=== PATIENT | female | born 1965 | race Hispanic/Latino ===

== ENCOUNTER 2017-05-05 10:16 | Inpatient (IN) | payer BC ==
[2017-05-05 13:05] LABS: Hematocrit 30.9 % (30.3-42.9); Hemoglobin 10.1 gm/dl (10.1-14.3); Mean Corpuscular HGB Conc 33 % (30-34); Mean Corpuscular Hemoglobin 30 pg (28-32); Mean Corpuscular Volume 91 fl (79-97); Red Blood Count 3.38 M/mm3 (3.65-5.03); Red Cell Distribution Width 16.4 % (13.2-15.2)
[2017-05-05 13:07] LABS: Platelet Count 49 K/mm3 (140-440)
[2017-05-05 13:08] LABS: White Blood Count 1.8 K/mm3 (4.5-11.0)
[2017-05-05 13:21] LABS: Albumin 2.6 g/dL (3.9-5); Albumin/Globulin Ratio 0.9 %; Bilirubin,Direct 0.9 mg/dL (0-0.2); Bilirubin,Total 1.9 mg/dL (0.1-1.2); Total Protein 5.5 g/dL (6.3-8.2)
[2017-05-05 13:39] LABS: Basophils % (Manual) 0 % (0.0-1.8); Blastocytes % (Manual) 0 %
[2017-05-05 13:40] LABS: Anisocytosis 1+; Diff Status Complete; Ovalocytes 1+; Platelet Estimate Appears Decreased; Poikilocytosis 1+
[2017-05-05] MEDS ORDERED: NACL 0.9% 1000 ML 1,000 ML IV ONE (13:40)
[2017-05-05 13:50] LABS: Anion Gap 13 mmol/L; Blood Urea Nitrogen 12 mg/dL (7-17); Calcium 7.9 mg/dL (8.4-10.2); Carbon Dioxide 24 mmol/L (22-30); Chloride 109.5 mmol/L (98-107); Glucose 98 mg/dL (65-100); Sodium 142 mmol/L (137-145)
[2017-05-05] MEDS ORDERED: CEPHULAC PO ONE (14:03)
--- NOTE | 2017-05-05 14:33 | Cat Scan Report ---
CT HEAD WITHOUT CONTRAST: HISTORY: Altered mental status. Serial contiguous axial images were obtained through the cranium. Intravenous contrast material was not administered. The ventricles are normal in size and appearance. There is no mass effect or midline shift. No areas of abnormally increased or decreased attenuation are seen. No mass lesion is seen. The mastoid air cells and visualized portions of the sinuses are normal. IMPRESSION: Cranial CT scan within normal limits.
[2017-05-05 15:36] LABS: INR 1.24 (0.87-1.13)
[2017-05-05 15:37] LABS: Partial Thromboplastin Time 28.1 Sec. (24.2-36.6)
[2017-05-05 15:40] LABS: Creatine Kinase MB 1.3 ng/mL (0.0-4.0)
[2017-05-05 15:52] LABS: Creatine Kinase MB 1.3 ng/mL (0.0-4.0)
[2017-05-05 15:53] LABS: Creatine Kinase 77 units/L (30-135)
[2017-05-05 15:55] LABS: Urine Drugs of Abuse Note Disclamer
[2017-05-05 16:22] LABS: Bilirubin,Urine NEG (Negative); Blood,Urine NEG (Negative); Ketones,Urine NEG (Negative); Leukocyte Esterase,Urine NEG (Negative); Nitrite,Urine NEG (Negative); Protein,Urine <15 mg/dL mg/dL (Negative)
--- NOTE | 2017-05-05 16:43 | Emergency Department Report ---
ED General Adult HPI - General Chief complaint: Weakness Stated complaint: AMS Time Seen by Provider: 05/05/17 11:38 Source: EMS Mode of arrival: Stretcher Limitations: Altered Mental Status - History of Present Illness Initial comments: I told that this patient has been a resident at [facility] for the past 4 days. I do not know if she is an inpatient or an outpatient at the [facility]. Information is unclear regarding this fact. She was sent here for altered mental status for evaluation. No other information was"at the time of my encounter. Later additional information was obtained from the family. The patient has a history of cirrhosis. She has previously been on lactulose. She has continued alcohol dependency. -: days(s) Severity scale (0 -10): 0 - Related Data Allergies Allergy/AdvReac Type Severity Reaction Status Date / Time trazodone Allergy Unknown Verified 05/05/17 11:30 ED Review of Systems ROS: Stated complaint: AMS Other details as noted in HPI Comment: Unobtainable due to pts medical conditions ED Past Medical Hx - Past Medical History Hx Liver Disease: Yes (end-stage liver disease) Additional medical history: etoh - Social History Smoking Status: Current Some Day Smoker Substance Use Type: Alcohol ED Physical Exam - General Limitations: Altered Mental Status General appearance: in no apparent distress, lethargic (but able to ambulate to the bathroom) - Head Head exam: Present: atraumatic, normocephalic - Eye Eye exam: Present: normal appearance, PERRL, EOMI. Absent: scleral icterus - ENT ENT exam: Present: mucous membranes moist - Neck Neck exam: Present: normal inspection. Absent: tenderness, meningismus - Respiratory Respiratory exam: Present: normal lung sounds bilaterally. Absent: respiratory distress - Cardiovascular Cardiovascular Exam: Present: regular rate, normal rhythm. Absent: systolic murmur, diastolic murmur, rubs, gallop - GI/Abdominal GI/Abdominal exam: Present: soft, normal bowel sounds. Absent: distended, tenderness, guarding, rebound, rigid - Extremities Exam Extremities exam: Present: normal inspection - Back Exam Back exam: Present: normal inspection - Neurological Exam Neurological exam: Present: altered, CN II-XII intact (as testable), normal gait. Absent: motor sensory deficit - Psychiatric Psychiatric exam: Present: normal mood, flat affect - Skin Skin exam: Present: warm, dry, intact, normal color. Absent: rash ED Course Vital Signs 05/05/17 05/05/17 11:03 15:39 Temperature 97.4 F L Pulse Rate 68 64 Respiratory 16 18 Rate Blood Pressure 95/50 Blood Pressure 124/64 [Left] O2 Sat by Pulse 100 97 Oximetry - Reevaluation(s) Reevaluation #1: The patient was found to have an ammonia level of greater than 250. Swallow screen was done. Lactulose was ordered. She is referred to the hospitalist service for further care and evaluation. She has a substantial pancytopenia. Lactic acid and blood cultures were ordered. Nurse informed to straight cath the patient for specimen. Urine culture ordered. 05/05/17 16:40 ED Medical Decision Making - Lab Data Result diagrams: 05/05/17 12:42 05/05/17 12:42 Laboratory Results - last 24 hr 05/05/17 05/05/17 05/05/17 12:42 12:42 12:42 WBC 1.8 L* RBC 3.38 L Hgb 10.1 Hct 30.9 MCV 91 MCH 30 MCHC 33 RDW 16.4 H Plt Count 49 L Add Manual Diff Complete Total Counted 25 Seg Neuts % (Manual) 44.0 Band Neutrophils % 0 Lymphocytes % (Manual) 48.0 H Reactive Lymphs % (Man) 0 Monocytes % (Manual) 4.0 Eosinophils % (Manual) 4.0 Basophils % (Manual) 0 Metamyelocytes % 0 Myelocytes % 0 Promyelocytes % 0 Blast Cells % 0 Nucleated RBC % Not Reportable Seg Neutrophils # Man 0.8 L Band Neutrophils # 0.0 Lymphocytes # (Manual) 0.9 L Abs React Lymphs (Man) 0.0 Monocytes # (Manual) 0.1 Eosinophils # (Manual) 0.1 Basophils # (Manual) 0.0 Metamyelocytes # 0.0 Myelocytes # 0.0 Promyelocytes # 0.0 Blast Cells # 0.0 WBC Morphology Not Reportable Hypersegmented Neuts Not Reportable Hyposegmented Neuts Not Reportable Hypogranular Neuts Not Reportable Smudge Cells Not Reportable Toxic Granulation Not Reportable Toxic Vacuolation Not Reportable Dohle Bodies Not Reportable Pelger-Huet Anomaly Not Reportable Nery Rods Not Reportable Platelet Estimate Appears decreased Clumped Platelets Not Reportable Plt Clumps, EDTA Not Reportable Large Platelets Not Reportable Giant Platelets Not Reportable Platelet Satelliting Not Reportable Plt Morphology Comment Not Reportable RBC Morphology Not Reportable Dimorphic RBCs Not Reportable Polychromasia Not Reportable Hypochromasia Not Reportable Poikilocytosis 1+ Anisocytosis 1+ Microcytosis Not Reportable Macrocytosis Not Reportable Spherocytes Not Reportable Pappenheimer Bodies Not Reportable Sickle Cells Not Reportable Target Cells Not Reportable Tear Drop Cells Not Reportable Ovalocytes 1+ Helmet Cells Not Reportable [place] Bodies Not Reportable [place] Rings Not Reportable Golden Cells Not Reportable Bite Cells Not Reportable Crenated Cell Not Reportable Elliptocytes Not Reportable Acanthocytes (Spur) Not Reportable Rouleaux Not Reportable Hemoglobin C Crystals Not Reportable Schistocytes Not Reportable Malaria parasites Not Reportable Joseph Bodies Not Reportable Hem Pathologist Commnt No PT INR APTT Sodium 142 Potassium 4.0 Chloride 109.5 H Carbon Dioxide 24 Anion Gap 13 BUN 12 Creatinine 0.4 L Estimated GFR > 60 BUN/Creatinine Ratio 30.00 Glucose 98 Lactic Acid Calcium 7.9 L Magnesium Total Bilirubin Direct Bilirubin Indirect Bilirubin AST ALT Alkaline Phosphatase Ammonia Total Creatine Kinase CK-MB (CK-2) CK-MB (CK-2) Rel Index Troponin T NT-Pro-B Natriuret Pep Total Protein Albumin Albumin/Globulin Ratio Urine Color Urine Turbidity Urine pH Ur Specific [place] [employer] Urine Protein Urine Glucose (UA) Urine Ketones Urine Blood Urine Nitrite Urine Bilirubin Urine Urobilinogen Ur Leukocyte Esterase Urine WBC (Auto) Urine RBC (Auto) Urine Opiates Screen Urine Methadone Screen Ur Barbiturates Screen Ur Phencyclidine Scrn Ur Amphetamines Screen Urine Cocaine Screen U Marijuana (THC) Screen Plasma/Serum Alcohol < 0.01 05/05/17 05/05/17 05/05/17 12:42 12:42 14:56 WBC RBC Hgb Hct MCV MCH MCHC RDW Plt Count Add Manual Diff Total Counted Seg Neuts % (Manual) Band Neutrophils % Lymphocytes % (Manual) Reactive Lymphs % (Man) Monocytes % (Manual) Eosinophils % (Manual) Basophils % (Manual) Metamyelocytes % Myelocytes % Promyelocytes % Blast Cells % Nucleated RBC % Seg Neutrophils # Man Band Neutrophils # Lymphocytes # (Manual) Abs React Lymphs (Man) Monocytes # (Manual) Eosinophils # (Manual) Basophils # (Manual) Metamyelocytes # Myelocytes # Promyelocytes # Blast Cells # WBC Morphology Hypersegmented Neuts Hyposegmented Neuts Hypogranular Neuts Smudge Cells Toxic Granulation Toxic Vacuolation Dohle Bodies Pelger-Huet Anomaly Nery Rods Platelet Estimate Clumped Platelets Plt Clumps, EDTA Large Platelets Giant Platelets Platelet Satelliting Plt Morphology Comment RBC Morphology Dimorphic RBCs Polychromasia Hypochromasia Poikilocytosis Anisocytosis Microcytosis Macrocytosis Spherocytes Pappenheimer Bodies Sickle Cells Target Cells Tear Drop Cells Ovalocytes Helmet Cells [place] Bodies [place] Rings Golden Cells Bite Cells Crenated Cell Elliptocytes Acanthocytes (Spur) Rouleaux Hemoglobin C Crystals Schistocytes Malaria parasites Joseph Bodies Hem Pathologist Commnt PT 16.3 H INR 1.24 H APTT 28.1 Sodium Potassium Chloride Carbon Dioxide Anion Gap BUN Creatinine Estimated GFR BUN/Creatinine Ratio Glucose Lactic Acid Calcium Magnesium Total Bilirubin 1.90 H Direct Bilirubin 0.9 H Indirect Bilirubin 1.0 AST 57 H ALT 18 Alkaline Phosphatase 141 H Ammonia 264.0 H Total Creatine Kinase CK-MB (CK-2) CK-MB (CK-2) Rel Index Troponin T NT-Pro-B Natriuret Pep Total Protein 5.5 L Albumin 2.6 L Albumin/Globulin Ratio 0.9 Urine Color Urine Turbidity Urine pH Ur Specific [place] [employer] Urine Protein Urine Glucose (UA) Urine Ketones Urine Blood Urine Nitrite Urine Bilirubin Urine Urobilinogen Ur Leukocyte Esterase Urine WBC (Auto) Urine RBC (Auto) Urine Opiates Screen Urine Methadone Screen Ur Barbiturates Screen Ur Phencyclidine Scrn Ur Amphetamines Screen Urine Cocaine Screen U Marijuana (THC) Screen Plasma/Serum Alcohol 05/05/17 05/05/17 05/05/17 14:56 14:56 14:56 WBC RBC Hgb Hct MCV MCH MCHC RDW Plt Count Add Manual Diff Total Counted Seg Neuts % (Manual) Band Neutrophils % Lymphocytes % (Manual) Reactive Lymphs % (Man) Monocytes % (Manual) Eosinophils % (Manual) Basophils % (Manual) Metamyelocytes % Myelocytes % Promyelocytes % Blast Cells % Nucleated RBC % Seg Neutrophils # Man Band Neutrophils # Lymphocytes # (Manual) Abs React Lymphs (Man) Monocytes # (Manual) Eosinophils # (Manual) Basophils # (Manual) Metamyelocytes # Myelocytes # Promyelocytes # Blast Cells # WBC Morphology Hypersegmented Neuts Hyposegmented Neuts Hypogranular Neuts Smudge Cells Toxic Granulation Toxic Vacuolation Dohle Bodies Pelger-Huet Anomaly Nery Rods Platelet Estimate Clumped Platelets Plt Clumps, EDTA Large Platelets Giant Platelets Platelet Satelliting Plt Morphology Comment RBC Morphology Dimorphic RBCs Polychromasia Hypochromasia Poikilocytosis Anisocytosis Microcytosis Macrocytosis Spherocytes Pappenheimer Bodies Sickle Cells Target Cells Tear Drop Cells Ovalocytes Helmet Cells [place] Bodies [place] Rings David Cells Bite Cells Crenated Cell Elliptocytes Acanthocytes (Spur) Rouleaux Hemoglobin C Crystals Schistocytes Malaria parasites Joseph Bodies Hem Pathologist Commnt PT INR APTT Sodium Potassium Chloride Carbon Dioxide Anion Gap BUN Creatinine Estimated GFR BUN/Creatinine Ratio Glucose Lactic Acid 1.60 Calcium Magnesium 2.20 Total Bilirubin Direct Bilirubin Indirect Bilirubin AST ALT Alkaline Phosphatase Ammonia Total Creatine Kinase 81 77 CK-MB (CK-2) 1.3 1.3 CK-MB (CK-2) Rel Index 1.6 1.6 Troponin T < 0.010 NT-Pro-B Natriuret Pep 28.78 Total Protein Albumin Albumin/Globulin Ratio Urine Color Urine Turbidity Urine pH Ur Specific [place] [employer] Urine Protein Urine Glucose (UA) Urine Ketones Urine Blood Urine Nitrite Urine Bilirubin Urine Urobilinogen Ur Leukocyte Esterase Urine WBC (Auto) Urine RBC (Auto) Urine Opiates Screen Urine Methadone Screen Ur Barbiturates Screen Ur Phencyclidine Scrn Ur Amphetamines Screen Urine Cocaine Screen U Marijuana (THC) Screen Plasma/Serum Alcohol 05/05/17 05/05/17 15:39 15:39 WBC RBC Hgb Hct MCV MCH MCHC RDW Plt Count Add Manual Diff Total Counted Seg Neuts % (Manual) Band Neutrophils % Lymphocytes % (Manual) Reactive Lymphs % (Man) Monocytes % (Manual) Eosinophils % (Manual) Basophils % (Manual) Metamyelocytes % Myelocytes % Promyelocytes % Blast Cells % Nucleated RBC % Seg Neutrophils # Man Band Neutrophils # Lymphocytes # (Manual) Abs React Lymphs (Man) Monocytes # (Manual) Eosinophils # (Manual) Basophils # (Manual) Metamyelocytes # Myelocytes # Promyelocytes # Blast Cells # WBC Morphology Hypersegmented Neuts Hyposegmented Neuts Hypogranular Neuts Smudge Cells Toxic Granulation Toxic Vacuolation Dohle Bodies Pelger-Huet Anomaly Nery Rods Platelet Estimate Clumped Platelets Plt Clumps, EDTA Large Platelets Giant Platelets Platelet Satelliting Plt Morphology Comment RBC Morphology Dimorphic RBCs Polychromasia Hypochromasia Poikilocytosis Anisocytosis Microcytosis Macrocytosis Spherocytes Pappenheimer Bodies Sickle Cells Target Cells Tear Drop Cells Ovalocytes Helmet Cells [place] Bodies [place] Rings Golden Cells Bite Cells Crenated Cell Elliptocytes Acanthocytes (Spur) Rouleaux Hemoglobin C Crystals Schistocytes Malaria parasites Joseph Bodies Hem Pathologist Commnt PT INR APTT Sodium Potassium Chloride Carbon Dioxide Anion Gap BUN Creatinine Estimated GFR BUN/Creatinine Ratio Glucose Lactic Acid Calcium Magnesium Total Bilirubin Direct Bilirubin Indirect Bilirubin AST ALT Alkaline Phosphatase Ammonia Total Creatine Kinase CK-MB (CK-2) CK-MB (CK-2) Rel Index Troponin T NT-Pro-B Natriuret Pep Total Protein Albumin Albumin/Globulin Ratio Urine Color Yellow Urine Turbidity Clear Urine pH 7.0 Ur Specific [place] [employer] 1.013 Urine Protein <15 mg/dl Urine Glucose (UA) Neg Urine Ketones Neg Urine Blood Neg Urine Nitrite Neg Urine Bilirubin Neg Urine Urobilinogen 4.0 Ur Leukocyte Esterase Neg Urine WBC (Auto) 1.0 Urine RBC (Auto) 4.0 Urine Opiates Screen Presumptive negative Urine Methadone Screen Presumptive negative Ur Barbiturates Screen Presumptive negative Ur Phencyclidine Scrn Presumptive negative Ur Amphetamines Screen Presumptive negative Urine Cocaine Screen Presumptive negative U Marijuana (THC) Screen Presumptive negative Plasma/Serum Alcohol - Medical Decision Making This time the patient's workup does not suggest infection. She does have a substantial pancytopenia mostly affecting the white cell And the platelets. There is no specific treatment for this at this time other than perhaps a banana bag. She will be admitted to the hospitalist service for further monitoring of this. Critical care attestation.: If time is entered above; I have spent that time in minutes in the direct care of this critically ill patient, excluding procedure time. ED Disposition Clinical Impression: Pancytopenia, Thrombocytopenia, End stage liver disease Neutropenia Qualifiers: Neutropenia type: unspecified Qualified Code(s): D70.9 - Neutropenia, unspecified Disposition: OP ADMIT IP TO THIS HOSP Is pt being admited?: Yes Does the pt Need Aspirin: No (contraindicated secondary to thrombocytopenia) Condition: Stable Referrals: PRIMARY CARE, [Primary Care Provider] - 3-5 Days Time of Disposition: 16:45
--- NOTE | 2017-05-05 16:50 | History and Physical Report ---
History of Present Illness Chief complaint: confused, lethargic History of present illness: 51 YO Female with ETOH Dependence, Cirrhosis, Nicotine Dependence, ESLD presents to ED for evaluation. Pt unable to provide history due to encephalopathy. Pt history provided by daughter who is at the bedside during exam and interview. Pt has been a resident at [facility] for the past 4 days fot ETOH Cessation. As per [facility] staff, the patient has become increasingly confused. EMS notified and patient transported to [facility] for evaluation. As per daughter, no reports of fever, chills, CP, Palpitations, Falls, Trauma, BRBPR, Hematemesis, productive cough, recent ill contacts. Pt seen and evaluated in ED and found to have a serum ammonia level of 264. Past History Past Medical History: other (ESLD, CIrrhosis, ETOH Dependence, ) Past Surgical History: appendectomy, cholecystectomy, Other (Gastric Bybass) Social history: single, lives with family, smoking, alcohol abuse Family history: CAD, diabetes Medications and Allergies Allergies Allergy/AdvReac Type Severity Reaction Status Date / Time trazodone Allergy Unknown Verified 05/05/17 11:30 Active Meds: Active Medications Sodium Chloride (Nacl 0.9% 1000 Ml) 1,000 mls @ 125 mls/hr IV ONCE ONE Stop: 05/05/17 21:39 Last Admin: 05/05/17 14:57 Dose: 125 mls/hr Folic Acid 1 mg/ Multivitamins /Minerals 10 ml/ Thiamine HCl 100 mg/ Sodium Chloride 1,000 mls @ 125 mls/hr IV .BY DURATION [facility] Sodium Chloride (Nacl 0.9% 1000 Ml) 1,000 mls @ 125 mls/hr IV .BY DURATION [facility] Review of Systems ROS unobtainable: due to mental status Exam - Constitutional Vitals: Temp Pulse Resp BP Pulse Ox 97.4 F L 64 18 124/64 97 05/05/17 11:03 05/05/17 15:39 05/05/17 15:39 05/05/17 15:39 05/05/17 15:39 General appearance: Present: mild distress - EENT Eyes: Present: PERRL ENT: hearing intact, clear oral mucosa - Neck Neck: Present: supple, normal ROM - Respiratory Respiratory effort: normal Respiratory: bilateral: CTA - Cardiovascular Heart Sounds: Present: S1 & S2. Absent: rub, click - Extremities Extremities: pulses symmetrical, No edema Peripheral Pulses: within normal limits - Abdominal General gastrointestinal: Present: soft, non-tender, non-distended, normal bowel sounds Female genitourinary: Present: normal - Integumentary Integumentary: Present: clear, dry, clammy, decreased turgor - Musculoskeletal Musculoskeletal: generalized weakness - Psychiatric Psychiatric: no intact judgment & insight, no memory intact - Neurologic Neurologic: no gait normal Results - Labs CBC & Chem 7: 05/05/17 12:42 05/05/17 12:42 Labs: Abnormal lab results 05/05/17 05/05/17 05/05/17 Range/Units 12:42 12:42 12:42 WBC 1.8 L* (4.5-11.0) K/mm3 RBC 3.38 L (3.65-5.03) M/mm3 RDW 16.4 H (13.2-15.2) % Plt Count 49 L (140-440) K/mm3 Lymphocytes % (Manual) 48.0 H (13.4-35.0) % Seg Neutrophils # Man 0.8 L (1.8-7.7) K/mm3 Lymphocytes # (Manual) 0.9 L (1.2-5.4) K/mm3 PT (12.2-14.9) Sec. INR (0.87-1.13) Chloride 109.5 H (98-107) mmol/L Creatinine 0.4 L (0.7-1.2) mg/dL Calcium 7.9 L (8.4-10.2) mg/dL Total Bilirubin 1.90 H (0.1-1.2) mg/dL Direct Bilirubin 0.9 H (0-0.2) mg/dL AST 57 H (5-40) units/L Alkaline Phosphatase 141 H (35-129) units/L Ammonia (25-60) umol/L Total Protein 5.5 L (6.3-8.2) g/dL Albumin 2.6 L (3.9-5) g/dL 05/05/17 05/05/17 Range/Units 12:42 14:56 WBC (4.5-11.0) K/mm3 RBC (3.65-5.03) M/mm3 RDW (13.2-15.2) % Plt Count (140-440) K/mm3 Lymphocytes % (Manual) (13.4-35.0) % Seg Neutrophils # Man (1.8-7.7) K/mm3 Lymphocytes # (Manual) (1.2-5.4) K/mm3 PT 16.3 H (12.2-14.9) Sec. INR 1.24 H (0.87-1.13) Chloride (98-107) mmol/L Creatinine (0.7-1.2) mg/dL Calcium (8.4-10.2) mg/dL Total Bilirubin (0.1-1.2) mg/dL Direct Bilirubin (0-0.2) mg/dL AST (5-40) units/L Alkaline Phosphatase (35-129) units/L Ammonia 264.0 H (25-60) umol/L Total Protein (6.3-8.2) g/dL Albumin (3.9-5) g/dL Assessment and Plan - Patient Problems (1) Hepatic encephalopathy syndrome Current Visit: Yes Status: Acute Plan to address problem: lactulose, IVF replacement, neuro checks, fall precautions, aspiration precautins, NPO (2) Cirrhosis Current Visit: Yes Status: Acute Qualifiers: Hepatic cirrhosis type: H Ascites presence: A Plan to address problem: Supportive care, ETOH cessation, hold tylenol. (3) End stage liver disease Current Visit: Yes Status: Acute Plan to address problem: supportive care, lactulose, hold hepatotoxic agents. (4) Thrombocytopenia Current Visit: Yes Status: Acute Plan to address problem: secondary to ESLD, supportive care, no active bleeding at this time. (5) DVT prophylaxis Current Visit: Yes Status: Acute
[2017-05-05] MEDS ORDERED: 1: FOLVITE 1 MG, INFUVITE 10 ML, VITAMIN B-1 100 MG in NACL 0.9% 1000 ML 988.8 ML 2: NA IV SCH (17:00)
[2017-05-05] MEDS ORDERED: PROVENTIL IH PRN (17:24)
[2017-05-05] MEDS ORDERED: ZOFRAN IV PRN (17:24)
[2017-05-05] MEDS ORDERED: MILK OF MAGNESIA PO PRN (17:24)
[2017-05-05] MEDS ORDERED: HALDOL IV PRN (17:27)
[2017-05-06] MEDS: ATIVAN IV PRN ×4 (05:53→15:57)
[2017-05-06] MEDS: NACL 0.9% 1000 ML 1,000 ML IV SCH (12:15)
--- NOTE | 2017-05-06 13:54 | Progress Note ---
Assessment and Plan Assessment and plan: Patient is a 51-year-old woman from [facility] with history of alcoholic end-stage liver disease/liver cirrhosis who presents with altered mental status. She was found to have ammonia level 264. UDS was positive for benzodiazepine. Also found to have pancytopenia all due to cirrhosis -Acute hepatic encephalopathy: Treat with lactulose -Advanced cirrhosis: Consult GI -Pancytopenia: Repeat CBC in a.m. -severe protein calorie malnutrition: Consult Dietitian -dvt prophylaxis: scd due to anemia History Interval history: Patient was seen and examined. Follow-up on current diagnosis/ams which is still present. Patient to confused to give history. She is awake alert Hospitalist Physical - Physical exam Narrative exam: GEN: unkempt, thin frail, NAD, AWAKE, ALERT, ORIENTATED 1 to self only HEENT: NCAT, EOMI, PERRL, OP Clear NECK: supple, no adenopathy, no thyromegaly, no JVD CVS/HEART: RRR, NORMAL S1S2, NO JVD, pulses present bilaterally CHEST/LUNGS: CTA B, Symmetrical chest expansion, good air entry bilaterally GI/Abdomen: soft, NTND, good bowel sounds, no guarding or rebound /Bladder: no suprapubic tenderness, no CVA or paraspinal tenderness EXT/Skin: no c/c/e, no significant edema or obvious rash MSK: FROM x 4 Neuro: CN 2-12 grossly intact, fine tremor Psych: calm - Constitutional Vitals: Temp Pulse Resp BP Pulse Ox 97.7 F 82 18 135/70 100 05/06/17 09:46 05/06/17 09:46 05/06/17 09:46 05/06/17 09:46 05/06/17 10:00 Results - Labs CBC & Chem 7: 05/05/17 12:42 05/05/17 12:42 Labs: Laboratory Last Values WBC 1.8 K/mm3 (4.5-11.0) L* 05/05/17 12:42 RBC 3.38 M/mm3 (3.65-5.03) L 05/05/17 12:42 Hgb 10.1 gm/dl (10.1-14.3) 05/05/17 12:42 Hct 30.9 % (30.3-42.9) 05/05/17 12:42 MCV 91 fl (79-97) 05/05/17 12:42 MCH 30 pg (28-32) 05/05/17 12:42 MCHC 33 % (30-34) 05/05/17 12:42 RDW 16.4 % (13.2-15.2) H 05/05/17 12:42 Plt Count 49 K/mm3 (140-440) L 05/05/17 12:42 Add Manual Diff Complete 05/05/17 12:42 Total Counted 25 05/05/17 12:42 Seg Neuts % (Manual) 44.0 % (40.0-70.0) 05/05/17 12:42 Band Neutrophils % 0 % 05/05/17 12:42 Lymphocytes % (Manual) 48.0 % (13.4-35.0) H 05/05/17 12:42 Reactive Lymphs % (Man) 0 % 05/05/17 12:42 Monocytes % (Manual) 4.0 % (0.0-7.3) 05/05/17 12:42 Eosinophils % (Manual) 4.0 % (0.0-4.3) 05/05/17 12:42 Basophils % (Manual) 0 % (0.0-1.8) 05/05/17 12:42 Metamyelocytes % 0 % 05/05/17 12:42 Myelocytes % 0 % 05/05/17 12:42 Promyelocytes % 0 % 05/05/17 12:42 Blast Cells % 0 % 05/05/17 12:42 Nucleated RBC % Not Reportable 05/05/17 12:42 Seg Neutrophils # Man 0.8 K/mm3 (1.8-7.7) L 05/05/17 12:42 Band Neutrophils # 0.0 K/mm3 05/05/17 12:42 Lymphocytes # (Manual) 0.9 K/mm3 (1.2-5.4) L 05/05/17 12:42 Abs React Lymphs (Man) 0.0 K/mm3 05/05/17 12:42 Monocytes # (Manual) 0.1 K/mm3 (0.0-0.8) 05/05/17 12:42 Eosinophils # (Manual) 0.1 K/mm3 (0.0-0.4) 05/05/17 12:42 Basophils # (Manual) 0.0 K/mm3 (0.0-0.1) 05/05/17 12:42 Metamyelocytes # 0.0 K/mm3 05/05/17 12:42 Myelocytes # 0.0 K/mm3 05/05/17 12:42 Promyelocytes # 0.0 K/mm3 05/05/17 12:42 Blast Cells # 0.0 K/mm3 05/05/17 12:42 WBC Morphology Not Reportable 05/05/17 12:42 Hypersegmented Neuts Not Reportable 05/05/17 12:42 Hyposegmented Neuts Not Reportable 05/05/17 12:42 Hypogranular Neuts Not Reportable 05/05/17 12:42 Smudge Cells Not Reportable 05/05/17 12:42 Toxic Granulation Not Reportable 05/05/17 12:42 Toxic Vacuolation Not Reportable 05/05/17 12:42 Dohle Bodies Not Reportable 05/05/17 12:42 Pelger-Huet Anomaly Not Reportable 05/05/17 12:42 Nery Rods Not Reportable 05/05/17 12:42 Platelet Estimate Appears decreased 05/05/17 12:42 Clumped Platelets Not Reportable 05/05/17 12:42 Plt Clumps, EDTA Not Reportable 05/05/17 12:42 Large Platelets Not Reportable 05/05/17 12:42 Giant Platelets Not Reportable 05/05/17 12:42 Platelet Satelliting Not Reportable 05/05/17 12:42 Plt Morphology Comment Not Reportable 05/05/17 12:42 RBC Morphology Not Reportable 05/05/17 12:42 Dimorphic RBCs Not Reportable 05/05/17 12:42 Polychromasia Not Reportable 05/05/17 12:42 Hypochromasia Not Reportable 05/05/17 12:42 Poikilocytosis 1+ 05/05/17 12:42 Anisocytosis 1+ 05/05/17 12:42 Microcytosis Not Reportable 05/05/17 12:42 Macrocytosis Not Reportable 05/05/17 12:42 Spherocytes Not Reportable 05/05/17 12:42 Pappenheimer Bodies Not Reportable 05/05/17 12:42 Sickle Cells Not Reportable 05/05/17 12:42 Target Cells Not Reportable 05/05/17 12:42 Tear Drop Cells Not Reportable 05/05/17 12:42 Ovalocytes 1+ 05/05/17 12:42 Helmet Cells Not Reportable 05/05/17 12:42 Ingram-[place] Bodies Not Reportable 05/05/17 12:42 [place] Rings Not Reportable 05/05/17 12:42 [place] Cells Not Reportable 05/05/17 12:42 Bite Cells Not Reportable 05/05/17 12:42 Crenated Cell Not Reportable 05/05/17 12:42 Elliptocytes Not Reportable 05/05/17 12:42 Acanthocytes (Spur) Not Reportable 05/05/17 12:42 Rouleaux Not Reportable 05/05/17 12:42 Hemoglobin C Crystals Not Reportable 05/05/17 12:42 Schistocytes Not Reportable 05/05/17 12:42 Malaria parasites Not Reportable 05/05/17 12:42 Joseph Bodies Not Reportable 05/05/17 12:42 Hem Pathologist Commnt No 05/05/17 12:42 PT 16.3 Sec. (12.2-14.9) H 05/05/17 14:56 INR 1.24 (0.87-1.13) H 05/05/17 14:56 APTT 28.1 Sec. (24.2-36.6) 05/05/17 14:56 Sodium 142 mmol/L (137-145) 05/05/17 12:42 Potassium 4.0 mmol/L (3.6-5.0) 05/05/17 12:42 Chloride 109.5 mmol/L (98-107) H 05/05/17 12:42 Carbon Dioxide 24 mmol/L (22-30) 05/05/17 12:42 Anion Gap 13 mmol/L 05/05/17 12:42 BUN 12 mg/dL (7-17) 05/05/17 12:42 Creatinine 0.4 mg/dL (0.7-1.2) L 05/05/17 12:42 Estimated GFR > 60 ml/min 05/05/17 12:42 BUN/Creatinine Ratio 30.00 % 05/05/17 12:42 Glucose 98 mg/dL (65-100) 05/05/17 12:42 Lactic Acid 1.60 mmol/L (0.7-2.0) 05/05/17 14:56 Calcium 7.9 mg/dL (8.4-10.2) L 05/05/17 12:42 Magnesium 2.20 mg/dL (1.7-2.3) 05/05/17 14:56 Total Bilirubin 1.90 mg/dL (0.1-1.2) H 05/05/17 12:42 Direct Bilirubin 0.9 mg/dL (0-0.2) H 05/05/17 12:42 Indirect Bilirubin 1.0 mg/dL 05/05/17 12:42 AST 57 units/L (5-40) H 05/05/17 12:42 ALT 18 units/L (7-56) 05/05/17 12:42 Alkaline Phosphatase 141 units/L (35-129) H 05/05/17 12:42 Ammonia 264.0 umol/L (25-60) H 05/05/17 12:42 Total Creatine Kinase 77 units/L (30-135) 05/05/17 14:56 CK-MB (CK-2) 1.3 ng/mL (0.0-4.0) 05/05/17 14:56 CK-MB (CK-2) Rel Index 1.6 (0-4) 05/05/17 14:56 Troponin T < 0.010 ng/mL (0.00-0.029) 05/05/17 14:56 NT-Pro-B Natriuret Pep 28.78 pg/mL (0-900) 05/05/17 14:56 Total Protein 5.5 g/dL (6.3-8.2) L 05/05/17 12:42 Albumin 2.6 g/dL (3.9-5) L 05/05/17 12:42 Albumin/Globulin Ratio 0.9 % 05/05/17 12:42 Urine Color Yellow (Yellow) 05/05/17 15:39 Urine Turbidity Clear (Clear) 05/05/17 15:39 Urine pH 7.0 (5.0-7.0) 05/05/17 15:39 Ur Specific [place] 1.013 (1.003-1.030) 05/05/17 15:39 Urine Protein <15 mg/dl mg/dL (Negative) 05/05/17 15:39 Urine Glucose (UA) Neg mg/dL (Negative) 05/05/17 15:39 Urine Ketones Neg mg/dL (Negative) 05/05/17 15:39 Urine Blood Neg (Negative) 05/05/17 15:39 Urine Nitrite Neg (Negative) 05/05/17 15:39 Urine Bilirubin Neg (Negative) 05/05/17 15:39 Urine Urobilinogen 4.0 mg/dL (<2.0) 05/05/17 15:39 Ur Leukocyte Esterase Neg (Negative) 05/05/17 15:39 Urine WBC (Auto) 1.0 /HPF (0.0-6.0) 05/05/17 15:39 Urine RBC (Auto) 4.0 /HPF (0.0-6.0) 05/05/17 15:39 Urine Opiates Screen Presumptive negative 05/05/17 15:39 Urine Methadone Screen Presumptive negative 05/05/17 15:39 Ur Barbiturates Screen Presumptive negative 05/05/17 15:39 Ur Phencyclidine Scrn Presumptive negative 05/05/17 15:39 Ur Amphetamines Screen Presumptive negative 05/05/17 15:39 U Benzodiazepines Scrn Presumptive positive 05/05/17 15:39 Urine Cocaine Screen Presumptive negative 05/05/17 15:39 U Marijuana (THC) Screen Presumptive negative 05/05/17 15:39 Drugs of Abuse Note Disclamer 05/05/17 15:39 Plasma/Serum Alcohol < 0.01 gm% (0-0.07) 05/05/17 12:42
[2017-05-06] MEDS: CEPHULAC PO SCH ×2 (15:56→18:45)
--- NOTE | 2017-05-06 16:30 | Gastroenterology Consultation ---
History of Present Illness - Reason for Consult Consult date: 05/06/17 hepatic encephalopathy Requesting physician: DUSTY MATHIS - History of Present Illness The patient is a 51 year old female transferred her from the [facility] where she had been for 4 days for alcohol dependence. She developed severe confusion and somnolence was sent to the ER where a very elevated ammonia level was found c/w hepatic encephalopathy. She apparently has a long history of ETOH abuse. The patient was unable to give any history due to her somnolence and confusion. Past History Past Medical History: other (ESLD, CIrrhosis, ETOH Dependence, ) Past Surgical History: appendectomy, cholecystectomy, Other (Gastric Bybass) Social history: single, lives with family, smoking, alcohol abuse Family history: CAD, diabetes Medications and Allergies Allergies Allergy/AdvReac Type Severity Reaction Status Date / Time trazodone Allergy Unknown Verified 05/05/17 11:30 Home Medications Medication Instructions Recorded Confirmed Last Taken Type FLUoxetine [PROzac] 60 mg PO DAILY 05/06/17 05/06/17 Unknown History Folic Acid [Folvite] 1 mg PO DAILY 05/06/17 05/06/17 Unknown History Magnesium Oxide [Magnesium] 400 mg PO DAILY 05/06/17 05/06/17 Unknown History Quetiapine Fumarate [SEROquel] 50 mg PO HS 05/06/17 05/06/17 Unknown History Rifaximin [Xifaxan] 550 mg PO BID 05/06/17 05/06/17 Unknown History Active Meds: Active Medications Albuterol (Proventil) 2.5 mg IH Q4HRT PRN PRN Reason: Shortness Of Breath Haloperidol Lactate (Haldol) 5 mg IV Q1HR PRN PRN Reason: Unrespon. to mult. doses BZD's Sodium Chloride (Nacl 0.9% 1000 Ml) 1,000 mls @ 125 mls/hr IV DIRECT WALT Last Admin: 05/06/17 12:15 Dose: 125 mls/hr Folic Acid 1 mg/ Multivitamins /Minerals 10 ml/ Thiamine HCl 100 mg/ Sodium Chloride 1,011.2 mls @ 125 mls/hr IV DAILY WALT Lactulose (Cephulac) 20 gm PO Q6HR WALT Last Admin: 05/06/17 15:56 Dose: 20 gm Lorazepam (Ativan) 2 mg IV Q1HR PRN PRN Reason: CIWA-Ar 8-15 Last Admin: 05/06/17 15:57 Dose: 2 mg Review of Systems - Review of Systems ROS unobtainable: due to mental status Exam - Constitutional Vital Signs: Temp Pulse Resp BP Pulse Ox 97.7 F 82 18 135/70 100 05/06/17 09:46 05/06/17 09:46 05/06/17 09:46 05/06/17 09:46 05/06/17 10:00 General appearance: no acute distress, well-nourished - EENT Eyes: PERRL ENT: hearing intact, clear oral mucosa, dentition normal - Neck Neck: supple, normal ROM, no masses or JVD - Respiratory Respiratory effort: normal Respiratory: bilateral: CTA - Breasts Breasts: deferred Extremities: pulses intact, No edema, normal color, Full ROM - Gastrointestinal General gastrointestinal: Present: soft, non-tender, non-distended, normal bowel sounds. Absent: hepatomegaly, splenomegaly, mass Rectal Exam: deferred - Genitourinary Female Genitourinary: deferred - Neurologic Neurological: disoriented, strength equal bilaterally, other (Somnolent. Mild asterixis. Follows simple commands and moves all extremities equally.) - Labs CBC & Chem 7: 05/05/17 12:42 05/05/17 12:42 Lab Results: Laboratory Results - last 24 hr 05/05/17 15:39 U Benzodiazepines Scrn Presumptive positive Drugs of Abuse Note Disclamer Assessment and Plan - Patient Problems (1) Cirrhosis Current Visit: Yes Status: Acute Qualifiers: Hepatic cirrhosis type: H Ascites presence: A Plan to address problem: Advanced liver disease secondary to ETOH. (2) End stage liver disease Current Visit: Yes Status: Acute (3) Hepatic encephalopathy syndrome Current Visit: Yes Status: Acute Plan to address problem: PSE may have been triggered by use of benzodiazepines, which should be avoided along with narcotics, any sedative/anti emetics etc in this setting. No signs of bleeding. She is on appropriate therapy and is taking lactulose PO. (4) Neutropenia Current Visit: Yes Status: Acute Qualifiers: Neutropenia type: unspecified Qualified Code(s): D70.9 - Neutropenia, unspecified
[2017-05-07] MEDS: CEPHULAC PO SCH ×4 (00:02→17:08)
[2017-05-07] MEDS: NACL 0.9% 1000 ML 1,000 ML IV SCH (00:03)
[2017-05-07] MEDS ORDERED: ATIVAN PO PRN ×2 (03:51→03:54)
[2017-05-07] MEDS ORDERED: VITAMIN B1 IV SCH (10:00)
[2017-05-07] MEDS ORDERED: NACL 0.9% IV SCH (10:00)
[2017-05-07] MEDS ORDERED: FOLVITE IV SCH (10:00)
[2017-05-07] MEDS ORDERED: INFUVITE IV SCH (10:00)
--- NOTE | 2017-05-07 12:55 | Progress Note ---
Assessment and Plan Assessment and plan: Patient is a 51-year-old woman from [facility] with history of alcoholic end-stage liver disease/liver cirrhosis who presents with altered mental status. She was found to have ammonia level 264. UDS was positive for benzodiazepine. Also found to have pancytopenia all due to cirrhosis -Acute hepatic encephalopathy: Treat with lactulose -Advanced cirrhosis: Consulted GI -Pancytopenia: Repeat CBC in a.m. -severe protein calorie malnutrition: Consult Dietitian -dvt prophylaxis: scd due to anemia History Interval history: Patient was seen and examined. Follow-up on current diagnosis/ams which is still present. Patient to confused to give history. She is awake alert Hospitalist Physical - Physical exam Narrative exam: GEN: unkempt, thin frail, NAD, AWAKE, ALERT, ORIENTATED 1, self but almost got the year correct HEENT: NCAT, EOMI, PERRL, OP Clear NECK: supple, no adenopathy, no thyromegaly, no JVD CVS/HEART: RRR, NORMAL S1S2, NO JVD, pulses present bilaterally CHEST/LUNGS: CTA B, Symmetrical chest expansion, good air entry bilaterally GI/Abdomen: soft, NTND, good bowel sounds, no guarding or rebound /Bladder: no suprapubic tenderness, no CVA or paraspinal tenderness EXT/Skin: no c/c/e, no significant edema or obvious rash MSK: FROM x 4 Neuro: CN 2-12 grossly intact, fine tremor Psych: calm - Constitutional Vitals: Temp Pulse Resp BP Pulse Ox 99.3 F 78 18 129/77 96 05/07/17 11:37 05/07/17 11:37 05/07/17 11:37 05/07/17 11:37 05/07/17 11:37 General appearance: Present: mild distress Results - Labs CBC & Chem 7: 05/05/17 12:42 05/05/17 12:42 Labs: Laboratory Last Values WBC 1.8 K/mm3 (4.5-11.0) L* 05/05/17 12:42 RBC 3.38 M/mm3 (3.65-5.03) L 05/05/17 12:42 Hgb 10.1 gm/dl (10.1-14.3) 05/05/17 12:42 Hct 30.9 % (30.3-42.9) 05/05/17 12:42 MCV 91 fl (79-97) 05/05/17 12:42 MCH 30 pg (28-32) 05/05/17 12:42 MCHC 33 % (30-34) 05/05/17 12:42 RDW 16.4 % (13.2-15.2) H 05/05/17 12:42 Plt Count 49 K/mm3 (140-440) L 05/05/17 12:42 Add Manual Diff Complete 05/05/17 12:42 Total Counted 25 05/05/17 12:42 Seg Neuts % (Manual) 44.0 % (40.0-70.0) 05/05/17 12:42 Band Neutrophils % 0 % 05/05/17 12:42 Lymphocytes % (Manual) 48.0 % (13.4-35.0) H 05/05/17 12:42 Reactive Lymphs % (Man) 0 % 05/05/17 12:42 Monocytes % (Manual) 4.0 % (0.0-7.3) 05/05/17 12:42 Eosinophils % (Manual) 4.0 % (0.0-4.3) 05/05/17 12:42 Basophils % (Manual) 0 % (0.0-1.8) 05/05/17 12:42 Metamyelocytes % 0 % 05/05/17 12:42 Myelocytes % 0 % 05/05/17 12:42 Promyelocytes % 0 % 05/05/17 12:42 Blast Cells % 0 % 05/05/17 12:42 Nucleated RBC % Not Reportable 05/05/17 12:42 Seg Neutrophils # Man 0.8 K/mm3 (1.8-7.7) L 05/05/17 12:42 Band Neutrophils # 0.0 K/mm3 05/05/17 12:42 Lymphocytes # (Manual) 0.9 K/mm3 (1.2-5.4) L 05/05/17 12:42 Abs React Lymphs (Man) 0.0 K/mm3 05/05/17 12:42 Monocytes # (Manual) 0.1 K/mm3 (0.0-0.8) 05/05/17 12:42 Eosinophils # (Manual) 0.1 K/mm3 (0.0-0.4) 05/05/17 12:42 Basophils # (Manual) 0.0 K/mm3 (0.0-0.1) 05/05/17 12:42 Metamyelocytes # 0.0 K/mm3 05/05/17 12:42 Myelocytes # 0.0 K/mm3 05/05/17 12:42 Promyelocytes # 0.0 K/mm3 05/05/17 12:42 Blast Cells # 0.0 K/mm3 05/05/17 12:42 WBC Morphology Not Reportable 05/05/17 12:42 Hypersegmented Neuts Not Reportable 05/05/17 12:42 Hyposegmented Neuts Not Reportable 05/05/17 12:42 Hypogranular Neuts Not Reportable 05/05/17 12:42 Smudge Cells Not Reportable 05/05/17 12:42 Toxic Granulation Not Reportable 05/05/17 12:42 Toxic Vacuolation Not Reportable 05/05/17 12:42 Dohle Bodies Not Reportable 05/05/17 12:42 Pelger-Huet Anomaly Not Reportable 05/05/17 12:42 Nery Rods Not Reportable 05/05/17 12:42 Platelet Estimate Appears decreased 05/05/17 12:42 Clumped Platelets Not Reportable 05/05/17 12:42 Plt Clumps, EDTA Not Reportable 05/05/17 12:42 Large Platelets Not Reportable 05/05/17 12:42 Giant Platelets Not Reportable 05/05/17 12:42 Platelet Satelliting Not Reportable 05/05/17 12:42 Plt Morphology Comment Not Reportable 05/05/17 12:42 RBC Morphology Not Reportable 05/05/17 12:42 Dimorphic RBCs Not Reportable 05/05/17 12:42 Polychromasia Not Reportable 05/05/17 12:42 Hypochromasia Not Reportable 05/05/17 12:42 Poikilocytosis 1+ 05/05/17 12:42 Anisocytosis 1+ 05/05/17 12:42 Microcytosis Not Reportable 05/05/17 12:42 Macrocytosis Not Reportable 05/05/17 12:42 Spherocytes Not Reportable 05/05/17 12:42 Pappenheimer Bodies Not Reportable 05/05/17 12:42 Sickle Cells Not Reportable 05/05/17 12:42 Target Cells Not Reportable 05/05/17 12:42 Tear Drop Cells Not Reportable 05/05/17 12:42 Ovalocytes 1+ 05/05/17 12:42 Helmet Cells Not Reportable 05/05/17 12:42 Ingram-[place] Bodies Not Reportable 05/05/17 12:42 [place] Rings Not Reportable 05/05/17 12:42 [place] Cells Not Reportable 05/05/17 12:42 Bite Cells Not Reportable 05/05/17 12:42 Crenated Cell Not Reportable 05/05/17 12:42 Elliptocytes Not Reportable 05/05/17 12:42 Acanthocytes (Spur) Not Reportable 05/05/17 12:42 Rouleaux Not Reportable 05/05/17 12:42 Hemoglobin C Crystals Not Reportable 05/05/17 12:42 Schistocytes Not Reportable 05/05/17 12:42 Malaria parasites Not Reportable 05/05/17 12:42 Joseph Bodies Not Reportable 05/05/17 12:42 Hem Pathologist Commnt No 05/05/17 12:42 PT 16.3 Sec. (12.2-14.9) H 05/05/17 14:56 INR 1.24 (0.87-1.13) H 05/05/17 14:56 APTT 28.1 Sec. (24.2-36.6) 05/05/17 14:56 Sodium 142 mmol/L (137-145) 05/05/17 12:42 Potassium 4.0 mmol/L (3.6-5.0) 05/05/17 12:42 Chloride 109.5 mmol/L (98-107) H 05/05/17 12:42 Carbon Dioxide 24 mmol/L (22-30) 05/05/17 12:42 Anion Gap 13 mmol/L 05/05/17 12:42 BUN 12 mg/dL (7-17) 05/05/17 12:42 Creatinine 0.4 mg/dL (0.7-1.2) L 05/05/17 12:42 Estimated GFR > 60 ml/min 05/05/17 12:42 BUN/Creatinine Ratio 30.00 % 05/05/17 12:42 Glucose 98 mg/dL (65-100) 05/05/17 12:42 Lactic Acid 1.60 mmol/L (0.7-2.0) 05/05/17 14:56 Calcium 7.9 mg/dL (8.4-10.2) L 05/05/17 12:42 Magnesium 2.20 mg/dL (1.7-2.3) 05/05/17 14:56 Total Bilirubin 1.90 mg/dL (0.1-1.2) H 05/05/17 12:42 Direct Bilirubin 0.9 mg/dL (0-0.2) H 05/05/17 12:42 Indirect Bilirubin 1.0 mg/dL 05/05/17 12:42 AST 57 units/L (5-40) H 05/05/17 12:42 ALT 18 units/L (7-56) 05/05/17 12:42 Alkaline Phosphatase 141 units/L (35-129) H 05/05/17 12:42 Ammonia 264.0 umol/L (25-60) H 05/05/17 12:42 Total Creatine Kinase 77 units/L (30-135) 05/05/17 14:56 CK-MB (CK-2) 1.3 ng/mL (0.0-4.0) 05/05/17 14:56 CK-MB (CK-2) Rel Index 1.6 (0-4) 05/05/17 14:56 Troponin T < 0.010 ng/mL (0.00-0.029) 05/05/17 14:56 NT-Pro-B Natriuret Pep 28.78 pg/mL (0-900) 05/05/17 14:56 Total Protein 5.5 g/dL (6.3-8.2) L 05/05/17 12:42 Albumin 2.6 g/dL (3.9-5) L 05/05/17 12:42 Albumin/Globulin Ratio 0.9 % 05/05/17 12:42 Urine Color Yellow (Yellow) 05/05/17 15:39 Urine Turbidity Clear (Clear) 05/05/17 15:39 Urine pH 7.0 (5.0-7.0) 05/05/17 15:39 Ur Specific [place] 1.013 (1.003-1.030) 05/05/17 15:39 Urine Protein <15 mg/dl mg/dL (Negative) 05/05/17 15:39 Urine Glucose (UA) Neg mg/dL (Negative) 05/05/17 15:39 Urine Ketones Neg mg/dL (Negative) 05/05/17 15:39 Urine Blood Neg (Negative) 05/05/17 15:39 Urine Nitrite Neg (Negative) 05/05/17 15:39 Urine Bilirubin Neg (Negative) 05/05/17 15:39 Urine Urobilinogen 4.0 mg/dL (<2.0) 05/05/17 15:39 Ur Leukocyte Esterase Neg (Negative) 05/05/17 15:39 Urine WBC (Auto) 1.0 /HPF (0.0-6.0) 05/05/17 15:39 Urine RBC (Auto) 4.0 /HPF (0.0-6.0) 05/05/17 15:39 Urine Opiates Screen Presumptive negative 05/05/17 15:39 Urine Methadone Screen Presumptive negative 05/05/17 15:39 Ur Barbiturates Screen Presumptive negative 05/05/17 15:39 Ur Phencyclidine Scrn Presumptive negative 05/05/17 15:39 Ur Amphetamines Screen Presumptive negative 05/05/17 15:39 U Benzodiazepines Scrn Presumptive positive 05/05/17 15:39 Urine Cocaine Screen Presumptive negative 05/05/17 15:39 U Marijuana (THC) Screen Presumptive negative 05/05/17 15:39 Drugs of Abuse Note Disclamer 05/05/17 15:39 Plasma/Serum Alcohol < 0.01 gm% (0-0.07) 05/05/17 12:42
--- NOTE | 2017-05-07 15:47 | Gastroenterology Progress Note ---
Assessment and Plan - Patient Problems (1) Cirrhosis Current Visit: Yes Status: Acute Qualifiers: Hepatic cirrhosis type: H Ascites presence: A (2) End stage liver disease Current Visit: Yes Status: Acute (3) Hepatic encephalopathy syndrome Current Visit: Yes Status: Acute Plan to address problem: Improving rapidly. Stable GI parmar. All sedatives, hypnotics, anti emetics, narcotics, and benzodiazepines should be avoided. Would limit the use of antipsychotic as much as feasible as well. OK to consider discharge in AM GI parmar. (4) Neutropenia Current Visit: Yes Status: Acute Qualifiers: Neutropenia type: unspecified Qualified Code(s): D70.9 - Neutropenia, unspecified Subjective Date of service: 05/07/17 Principal diagnosis: hepatic encephalopathy Interval history: The patient reports feeling a lot better. She desires to go home soon because her daughter is getting in 2 days by her report. Objective - Constitutional Vitals: Temp Pulse Resp BP Pulse Ox 99.3 F 78 18 129/77 96 05/07/17 11:37 05/07/17 11:37 05/07/17 11:37 05/07/17 11:37 05/07/17 11:37 General appearance: no acute distress, other (fully alert and oriented) - EENT ENT: hearing intact, clear oral mucosa, dentition normal - Neck Neck: supple, normal ROM - Respiratory Respiratory effort: normal Respiratory: bilateral: CTA - Cardiovascular Rhythm: regular - Gastrointestinal General gastrointestinal: Present: soft, non-tender, non-distended, normal bowel sounds - Neurologic Neurological: alert and oriented x3, strength equal bilaterally, other (No asterixis) - Psychiatric Psychiatric: appropriate mood/affect, intact judgment & insight - Labs CBC & Chem 7: 05/05/17 12:42 05/05/17 12:42
[2017-05-07] MEDS ORDERED: NON-FORMULARY (Quetiapine Fumarate [Seroquel] 50 MG) PO SCH (22:00)
[2017-05-07] MEDS: XIFAXAN PO SCH (22:08)
[2017-05-08] MEDS: CEPHULAC PO SCH ×3 (01:10→13:13)
[2017-05-08] MEDS: NACL 0.9% 1000 ML 1,000 ML IV SCH ×2 (01:13→08:39)
[2017-05-08 06:09] LABS: Hematocrit 28.5 % (30.3-42.9); Hemoglobin 9.6 gm/dl (10.1-14.3); Mean Corpuscular HGB Conc 34 % (30-34); Mean Corpuscular Hemoglobin 31 pg (28-32); Mean Corpuscular Volume 91 fl (79-97); Red Blood Count 3.14 M/mm3 (3.65-5.03); Red Cell Distribution Width 16.9 % (13.2-15.2); White Blood Count 2.4 K/mm3 (4.5-11.0)
[2017-05-08 06:18] LABS: Platelet Count 51 K/mm3 (140-440)
[2017-05-08 06:35] LABS: Alanine Aminotransferase 22 units/L (7-56); Albumin 2.5 g/dL (3.9-5); Albumin/Globulin Ratio 0.9 %; Alkaline Phosphatase 136 units/L (35-129); Anion Gap 14 mmol/L; BUN/Creatinine Ratio 13.33; Blood Urea Nitrogen 4 mg/dL (7-17); Calcium 7.7 mg/dL (8.4-10.2); Carbon Dioxide 23 mmol/L (22-30); Chloride 112.6 mmol/L (98-107); Glucose 82 mg/dL (65-100); Potassium 3.4 mmol/L (3.6-5.0); Sodium 146 mmol/L (137-145); Total Protein 5.2 g/dL (6.3-8.2)
[2017-05-08 08:17] VITALS: BP 106/66
[2017-05-08] MEDS: XIFAXAN PO SCH (09:43)
[2017-05-08] MEDS ORDERED: MAG-OX PO SCH (10:00)
--- NOTE | 2017-05-08 11:34 | Progress Note ---
Assessment and Plan Assessment and plan: Patient is a 51-year-old woman from [facility] with history of alcoholic end-stage liver disease/liver cirrhosis who presents with altered mental status. She was found to have ammonia level 264. UDS was positive for benzodiazepine. Also found to have pancytopenia all due to cirrhosis -Alcholol withdrawal suspected but resolving: [facility] protocol -Acute hepatic encephalopathy with hyperammonemia: Treated with lactulose -Advanced cirrhosis: Consulted GI -Pancytopenia with coagulopathy due to cirrhosis -severe protein calorie malnutrition: Consult Dietitian -dvt prophylaxis: scd due to anemia -Hypokalemia: replace full code disposition: continue inpatient care. d/c restraints. History Interval history: Patient was seen and examined. Follow-up on current diagnosis/ams resolving. No cp.sob, headaches Hospitalist Physical - Physical exam Narrative exam: GEN: unkempt, thin frail, NAD, awake alert ORIENTATED 2, missed place HEENT: NCAT, EOMI, PERRL, OP Clear NECK: supple, no adenopathy, no thyromegaly, no JVD CVS/HEART: RRR, NORMAL S1S2, NO JVD, pulses present bilaterally CHEST/LUNGS: CTA B, Symmetrical chest expansion, good air entry bilaterally GI/Abdomen: soft, NTND, good bowel sounds, no guarding or rebound /Bladder: no suprapubic tenderness, no CVA or paraspinal tenderness EXT/Skin: no c/c/e, no significant edema or obvious rash MSK: FROM x 4 Neuro: CN 2-12 grossly intact, fine tremor Psych: calm - Constitutional Vitals: Temp Pulse Resp BP Pulse Ox 98.6 F 68 20 106/66 97 05/08/17 08:02 05/08/17 08:02 05/08/17 08:02 05/08/17 08:02 05/08/17 08:02 General appearance: Absent: mild distress, severe distress Results - Labs CBC & Chem 7: 05/08/17 05:38 05/08/17 05:38 Labs: Laboratory Last Values WBC 2.4 K/mm3 (4.5-11.0) L 05/08/17 05:38 RBC 3.14 M/mm3 (3.65-5.03) L 05/08/17 05:38 Hgb 9.6 gm/dl (10.1-14.3) L 05/08/17 05:38 Hct 28.5 % (30.3-42.9) L 05/08/17 05:38 MCV 91 fl (79-97) 05/08/17 05:38 MCH 31 pg (28-32) 05/08/17 05:38 MCHC 34 % (30-34) 05/08/17 05:38 RDW 16.9 % (13.2-15.2) H 05/08/17 05:38 Plt Count 51 K/mm3 (140-440) L 05/08/17 05:38 Add Manual Diff Complete 05/05/17 12:42 Total Counted 25 05/05/17 12:42 Seg Neuts % (Manual) 44.0 % (40.0-70.0) 05/05/17 12:42 Band Neutrophils % 0 % 05/05/17 12:42 Lymphocytes % (Manual) 48.0 % (13.4-35.0) H 05/05/17 12:42 Reactive Lymphs % (Man) 0 % 05/05/17 12:42 Monocytes % (Manual) 4.0 % (0.0-7.3) 05/05/17 12:42 Eosinophils % (Manual) 4.0 % (0.0-4.3) 05/05/17 12:42 Basophils % (Manual) 0 % (0.0-1.8) 05/05/17 12:42 Metamyelocytes % 0 % 05/05/17 12:42 Myelocytes % 0 % 05/05/17 12:42 Promyelocytes % 0 % 05/05/17 12:42 Blast Cells % 0 % 05/05/17 12:42 Nucleated RBC % Not Reportable 05/05/17 12:42 Seg Neutrophils # Man 0.8 K/mm3 (1.8-7.7) L 05/05/17 12:42 Band Neutrophils # 0.0 K/mm3 05/05/17 12:42 Lymphocytes # (Manual) 0.9 K/mm3 (1.2-5.4) L 05/05/17 12:42 Abs React Lymphs (Man) 0.0 K/mm3 05/05/17 12:42 Monocytes # (Manual) 0.1 K/mm3 (0.0-0.8) 05/05/17 12:42 Eosinophils # (Manual) 0.1 K/mm3 (0.0-0.4) 05/05/17 12:42 Basophils # (Manual) 0.0 K/mm3 (0.0-0.1) 05/05/17 12:42 Metamyelocytes # 0.0 K/mm3 05/05/17 12:42 Myelocytes # 0.0 K/mm3 05/05/17 12:42 Promyelocytes # 0.0 K/mm3 05/05/17 12:42 Blast Cells # 0.0 K/mm3 05/05/17 12:42 WBC Morphology Not Reportable 05/05/17 12:42 Hypersegmented Neuts Not Reportable 05/05/17 12:42 Hyposegmented Neuts Not Reportable 05/05/17 12:42 Hypogranular Neuts Not Reportable 05/05/17 12:42 Smudge Cells Not Reportable 05/05/17 12:42 Toxic Granulation Not Reportable 05/05/17 12:42 Toxic Vacuolation Not Reportable 05/05/17 12:42 Dohle Bodies Not Reportable 05/05/17 12:42 Pelger-Huet Anomaly Not Reportable 05/05/17 12:42 Nery Rods Not Reportable 05/05/17 12:42 Platelet Estimate Appears decreased 05/05/17 12:42 Clumped Platelets Not Reportable 05/05/17 12:42 Plt Clumps, EDTA Not Reportable 05/05/17 12:42 Large Platelets Not Reportable 05/05/17 12:42 Giant Platelets Not Reportable 05/05/17 12:42 Platelet Satelliting Not Reportable 05/05/17 12:42 Plt Morphology Comment Not Reportable 05/05/17 12:42 RBC Morphology Not Reportable 05/05/17 12:42 Dimorphic RBCs Not Reportable 05/05/17 12:42 Polychromasia Not Reportable 05/05/17 12:42 Hypochromasia Not Reportable 05/05/17 12:42 Poikilocytosis 1+ 05/05/17 12:42 Anisocytosis 1+ 05/05/17 12:42 Microcytosis Not Reportable 05/05/17 12:42 Macrocytosis Not Reportable 05/05/17 12:42 Spherocytes Not Reportable 05/05/17 12:42 Pappenheimer Bodies Not Reportable 05/05/17 12:42 Sickle Cells Not Reportable 05/05/17 12:42 Target Cells Not Reportable 05/05/17 12:42 Tear Drop Cells Not Reportable 05/05/17 12:42 Ovalocytes 1+ 05/05/17 12:42 Helmet Cells Not Reportable 05/05/17 12:42 [place] Bodies Not Reportable 05/05/17 12:42 [place] Rings Not Reportable 05/05/17 12:42 [place] Cells Not Reportable 05/05/17 12:42 Bite Cells Not Reportable 05/05/17 12:42 Crenated Cell Not Reportable 05/05/17 12:42 Elliptocytes Not Reportable 05/05/17 12:42 Acanthocytes (Spur) Not Reportable 05/05/17 12:42 Rouleaux Not Reportable 05/05/17 12:42 Hemoglobin C Crystals Not Reportable 05/05/17 12:42 Schistocytes Not Reportable 05/05/17 12:42 Malaria parasites Not Reportable 05/05/17 12:42 Joseph Bodies Not Reportable 05/05/17 12:42 Hem Pathologist Commnt No 05/05/17 12:42 PT 16.3 Sec. (12.2-14.9) H 05/05/17 14:56 INR 1.24 (0.87-1.13) H 05/05/17 14:56 APTT 28.1 Sec. (24.2-36.6) 05/05/17 14:56 Sodium 146 mmol/L (137-145) H 05/08/17 05:38 Potassium 3.4 mmol/L (3.6-5.0) L 05/08/17 05:38 Chloride 112.6 mmol/L (98-107) H 05/08/17 05:38 Carbon Dioxide 23 mmol/L (22-30) 05/08/17 05:38 Anion Gap 14 mmol/L 05/08/17 05:38 BUN 4 mg/dL (7-17) L 05/08/17 05:38 Creatinine 0.3 mg/dL (0.7-1.2) L 05/08/17 05:38 Estimated GFR > 60 ml/min 05/08/17 05:38 BUN/Creatinine Ratio 13.33 % 05/08/17 05:38 Glucose 82 mg/dL (65-100) 05/08/17 05:38 Lactic Acid 1.60 mmol/L (0.7-2.0) 05/05/17 14:56 Calcium 7.7 mg/dL (8.4-10.2) L 05/08/17 05:38 Magnesium 2.20 mg/dL (1.7-2.3) 05/05/17 14:56 Total Bilirubin 1.50 mg/dL (0.1-1.2) H 05/08/17 05:38 Direct Bilirubin 0.9 mg/dL (0-0.2) H 05/05/17 12:42 Indirect Bilirubin 1.0 mg/dL 05/05/17 12:42 AST 64 units/L (5-40) H 05/08/17 05:38 ALT 22 units/L (7-56) 05/08/17 05:38 Alkaline Phosphatase 136 units/L (35-129) H 05/08/17 05:38 Ammonia 58.0 umol/L (25-60) 05/08/17 05:38 Total Creatine Kinase 77 units/L (30-135) 05/05/17 14:56 CK-MB (CK-2) 1.3 ng/mL (0.0-4.0) 05/05/17 14:56 CK-MB (CK-2) Rel Index 1.6 (0-4) 05/05/17 14:56 Troponin T < 0.010 ng/mL (0.00-0.029) 05/05/17 14:56 NT-Pro-B Natriuret Pep 28.78 pg/mL (0-900) 05/05/17 14:56 Total Protein 5.2 g/dL (6.3-8.2) L 05/08/17 05:38 Albumin 2.5 g/dL (3.9-5) L 05/08/17 05:38 Albumin/Globulin Ratio 0.9 % 05/08/17 05:38 Urine Color Yellow (Yellow) 05/05/17 15:39 Urine Turbidity Clear (Clear) 05/05/17 15:39 Urine pH 7.0 (5.0-7.0) 05/05/17 15:39 Ur Specific [place] 1.013 (1.003-1.030) 05/05/17 15:39 Urine Protein <15 mg/dl mg/dL (Negative) 05/05/17 15:39 Urine Glucose (UA) Neg mg/dL (Negative) 05/05/17 15:39 Urine Ketones Neg mg/dL (Negative) 05/05/17 15:39 Urine Blood Neg (Negative) 05/05/17 15:39 Urine Nitrite Neg (Negative) 05/05/17 15:39 Urine Bilirubin Neg (Negative) 05/05/17 15:39 Urine Urobilinogen 4.0 mg/dL (<2.0) 05/05/17 15:39 Ur Leukocyte Esterase Neg (Negative) 05/05/17 15:39 Urine WBC (Auto) 1.0 /HPF (0.0-6.0) 05/05/17 15:39 Urine RBC (Auto) 4.0 /HPF (0.0-6.0) 05/05/17 15:39 Urine Opiates Screen Presumptive negative 05/05/17 15:39 Urine Methadone Screen Presumptive negative 05/05/17 15:39 Ur Barbiturates Screen Presumptive negative 05/05/17 15:39 Ur Phencyclidine Scrn Presumptive negative 05/05/17 15:39 Ur Amphetamines Screen Presumptive negative 05/05/17 15:39 U Benzodiazepines Scrn Presumptive positive 05/05/17 15:39 Urine Cocaine Screen Presumptive negative 05/05/17 15:39 U Marijuana (THC) Screen Presumptive negative 05/05/17 15:39 Drugs of Abuse Note Disclamer 05/05/17 15:39 Plasma/Serum Alcohol < 0.01 gm% (0-0.07) 05/05/17 12:42
--- NOTE | 2017-05-08 11:42 | Discharge Summary ---
Providers - Providers Date of Admission: 05/05/17 17:24 Date of discharge: 05/08/17 Attending physician: DUSTY MATHIS 05/06/17 13:54 Consult to Physician [CONS] Routine Consulting Provider: BEATRICE GRIJALVA Reason For Exam: hepatic encephalopathy Place consult to:: Laxmi AUGUSTIN Notified:: ANSWERING SERVICES Phone number called:: [phone] Was contact made?: Yes If yes, spoke with:: REZA Time called:: 15:32 Comment:: NADIYA NOTIFIED 05/06/17 13:55 Consult to Dietitian/Nutrition [CONS] Routine Physician Instructions: Reason For Exam: Reason for Consult: Malnutrition Primary care physician: RACE STARTER Hospitalization Condition: Stable Hospital course: Patient is a 51-year-old woman from [facility] with history of alcoholic end-stage liver disease/liver cirrhosis who presents with altered mental status. She was found to have ammonia level 264. UDS was positive for benzodiazepine. Also found to have pancytopenia all due to cirrhosis -Acute hepatic encephalopathy with hyperammonemia: Treated with lactulose -Advanced cirrhosis: Consulted GI -Pancytopenia with coagulopathy due to cirrhosis -Alcholol withdrawal suspected but resolving: [place] protocol -severe protein calorie malnutrition: Consult Dietitian -dvt prophylaxis: scd due to anemia -Hypokalemia: replace full code disposition: continue inpatient care, d/c restraints. Disposition: DC-01 TO HOME OR SELFCARE Time spent for discharge: 36 minutes Core Measure Documentation - Palliative Care Palliative Care/ Comfort Measures: Not Applicable - Core Measures Any of the following diagnoses?: none - VTE Discharge Requirements Deep Vein Thrombosis/Pulmonary Embolism Present on Admission: No Has pt received <5 days of overlap therapy or INR<2.0: No Anticoagulant overlap therapy prescribed at discharge: No Contraindication No Overlap Therapy order at DC: Not Indicated Exam - Physical Exam Narrative exam: GEN: unkempt, thin frail, NAD, awake alert ORIENTATED 2, missed place HEENT: NCAT, EOMI, PERRL, OP Clear NECK: supple, no adenopathy, no thyromegaly, no JVD CVS/HEART: RRR, NORMAL S1S2, NO JVD, pulses present bilaterally CHEST/LUNGS: CTA B, Symmetrical chest expansion, good air entry bilaterally GI/Abdomen: soft, NTND, good bowel sounds, no guarding or rebound /Bladder: no suprapubic tenderness, no CVA or paraspinal tenderness EXT/Skin: no c/c/e, no significant edema or obvious rash MSK: FROM x 4 Neuro: CN 2-12 grossly intact, fine tremor Psych: calm - Constitutional Vitals: Temp Pulse Resp BP Pulse Ox 98.6 F 68 20 106/66 97 05/08/17 08:02 05/08/17 08:02 05/08/17 08:02 05/08/17 08:02 05/08/17 08:02 Plan Activity: no driving until cleared by PCP, other (no strenous activity until cleared by pcp) Diet: low salt Additional Instructions: refrain for any alcohol, cigarettes, illegal drugs, xanax, ativan, narcotics, valium, librium. Follow up with: PRO MCKEON MD [Primary Care Provider] - 3-5 Days BEATRICE GRIJALVA MD [Staff Physician] - 7 Days
--- NOTE | 2017-05-08 12:00 | Gastroenterology Progress Note ---
Assessment and Plan - Patient Problems (1) Cirrhosis Current Visit: Yes Status: Acute Qualifiers: Hepatic cirrhosis type: H Ascites presence: A (2) End stage liver disease Current Visit: Yes Status: Acute (3) Hepatic encephalopathy syndrome Current Visit: Yes Status: Acute Plan to address problem: Resolved PSE. Stable for discharge GI parmar. She is aware of her serious liver disease and was advised to f/u to the office in 3 weeks. Strict avoidance of any sedatives, narcotics, sleeping pills, NSAIDS. (4) Neutropenia Current Visit: Yes Status: Acute Qualifiers: Neutropenia type: unspecified Qualified Code(s): D70.9 - Neutropenia, unspecified Subjective Date of service: 05/08/17 Principal diagnosis: hepatic encephalopathy Interval history: Feels good. Desires to go home. Eating well. Objective - Constitutional Vitals: Temp Pulse Resp BP Pulse Ox 98.6 F 68 20 106/66 97 05/08/17 08:02 05/08/17 08:02 05/08/17 08:02 05/08/17 08:02 05/08/17 08:02 General appearance: no acute distress - Neck Neck: supple, normal ROM - Respiratory Respiratory effort: normal Respiratory: bilateral: CTA - Cardiovascular Rhythm: regular - Gastrointestinal General gastrointestinal: Present: soft, non-tender, non-distended, normal bowel sounds - Neurologic Neurological: alert and oriented x3, strength equal bilaterally, other (No asterixis) - Psychiatric Psychiatric: appropriate mood/affect, intact judgment & insight - Labs CBC & Chem 7: 05/08/17 05:38 05/08/17 05:38 Labs: Laboratory Results - last 24 hr 05/08/17 05/08/17 05/08/17 05:38 05:38 05:38 WBC 2.4 L RBC 3.14 L Hgb 9.6 L Hct 28.5 L MCV 91 MCH 31 MCHC 34 RDW 16.9 H Plt Count 51 L Sodium 146 H Potassium 3.4 L Chloride 112.6 H Carbon Dioxide 23 Anion Gap 14 BUN 4 L Creatinine 0.3 L Estimated GFR > 60 BUN/Creatinine Ratio 13.33 Glucose 82 Calcium 7.7 L Total Bilirubin 1.50 H AST 64 H ALT 22 Alkaline Phosphatase 136 H Ammonia 58.0 Total Protein 5.2 L Albumin 2.5 L Albumin/Globulin Ratio 0.9
[2017-05-09] MEDS ORDERED: FOLVITE PO SCH (10:00)
[2017-05-09] MEDS ORDERED: THERAGRAN Tab PO SCH (10:00)
[2017-05-09] MEDS ORDERED: VITAMIN B-1 PO SCH (10:00)
== END 2017-05-08 14:00 | disposition home or self-care (01) | DRG 441 ==
LOC: ED 10:16 → 3A 17:24
PROVIDERS: ADMIT Internal Medicine; ATTEND Internal Medicine
DX: K72.90 Hepatic failure, unspecified without coma (principal); E43 Unspecified severe protein-calorie malnutrition; F10.239 Alcohol dependence with withdrawal, unspecified; D61.818 Other pancytopenia; D68.9 Coagulation defect, unspecified; K70.30 Alcoholic cirrhosis of liver without ascites; F17.200 Nicotine dependence, unspecified, uncomplicated; E87.6 Hypokalemia; D69.6 Thrombocytopenia, unspecified; Z68.23 Body mass index [BMI] 23.0-23.9, adult; Z90.49 Acquired absence of other specified parts of digestive tract; Z98.84 Bariatric surgery status; Z82.49 Family history of ischemic heart disease and other diseases of the circulatory system; Z83.3 Family history of diabetes mellitus
CPT/HCPCS: 36415; 70450; 80048; 80053; 80074; 80307; 80320; 81001; 82140; 82550; 82553; 83735; 83880; 84484; 85007; 85025; 85027; 85610; 85730; 87040; 87086; 96361; 96374; G0480; J2060; J3411; J7030